=== PATIENT | female | born 1995 | race Caucasian/White ===

== ENCOUNTER 2018-06-02 22:27 | Emergency (ER) | payer BC ==
--- NOTE | 2018-06-02 23:19 | EDPHYS ---
Physician Documentation [facility] Name: Shante Kwan Age: 22 yrs Sex: Female : 1995 Arrival Date: 06/02/2018 Time: 22:32 Bed 9 Private MD: ED Physician Navarro Lyles HPI: 06/02 23:16 This 22 yrs old Female presents to ER via Ambulatory with complaints of rn Urinary Problem. 23:16 The patient presents with urinary symptoms, dysuria, frequency. Onset: The rn symptoms/episode began/occurred this morning. Modifying factors: The symptoms are alleviated by nothing, the symptoms are aggravated by urinating. Severity of symptoms: At their worst the symptoms were mild, in the emergency department the symptoms are unchanged. The patient has experienced similar episodes in the past. Reports urinary symptoms, + dysuria and frequency, lower abd pain and low back pain, similar to previous UTIs, does not feel like kidney stone. No fever/vomiting.. 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 - Social history:: Smoking status: Patient/guardian denies using tobacco, Patient/guardian denies using alcohol, street drugs. - Ebola Screening: : Patient negative for fever greater than or equal to 101.5 degrees Fahrenheit, and additional compatible Ebola Virus Disease symptoms Patient denies exposure to infectious person Patient denies travel to an Ebola-affected area in the 21 days before illness onset. - Family history:: not pertinent. - Hospitalizations: : No recent hospitalization is reported. ROS: 23:17 Constitutional: Negative for fever, chills, and weight loss, Eyes: Negative for injury, rn pain, redness, and discharge, Cardiovascular: Negative for chest pain, palpitations, and edema, Respiratory: Negative for shortness of breath, cough, wheezing, and pleuritic chest pain, Abdomen/GI: + l ower abd pain Back: + low back pain : + frequency and dysuria MS/Extremity: Negative for injury and deformity, Neuro: Negative for headache, weakness, numbness, tingling, and seizure. Exam: 23:17 Constitutional: This is a well developed, well nourished patient who is awake, alert, rn and in no acute distress. Smiling and ambulatory, hopped onto bed. Abdomen/GI: soft, non-tender Back: No spinal tenderness. No costovertebral tenderness. Full range of motion. Skin: Warm, dry with normal turgor. Normal color with no rashes, no lesions, and no evidence of cellulitis. MS/ Extremity: Pulses equal, no cyanosis. Neurovascular intact. Full, normal range of motion. Equal circumference. Neuro: Awake and alert, GCS 15, oriented to person, place, time, and situation. Cranial nerves II-XII grossly intact. Motor strength 5/5 in all extremities. Sensory grossly intact. Cerebellar exam normal. Normal gait. Vital Signs: 22:53 BP 107 / 76; Pulse 80; Resp 18; Temp 98.9(O); Pulse Ox 100% on R/A; Weight 62.14 kg fc (R); Height 5 ft. 3 in. (160.02 cm) (R); Pain 7/10; 22:53 Body Mass Index 24.27 (62.14 kg, 160.02 cm) fc MDM: 23:12 Patient medically screened. rn 23:18 Differential diagnosis: urinary tract infection. Data reviewed: vital signs, nurses rn notes, lab test result(s), and as a result, I will discharge patient. Counseling: I had a detailed discussion with the patient and/or guardian regarding: the historical points, exam findings, and any diagnostic results supporting the discharge/admit diagnosis, lab results, the need for outpatient follow up, to return to the emergency department if symptoms worsen or persist or if there are any questions or concerns that arise at home. Special discussion: I discussed with the patient/guardian in detail that at this point there is no indication for admission to the hospital. It is understood, however, that if the symptoms persist or worsen the patient needs to return immediately for re-evaluation. 06/02 23:09 Order name: Urine Dipstick--Ancillary (enter results) em1 06/02 23:09 Order name: Urine Microscopic Only em1 06/02 23:09 Order name: Urine --Ancillary (enter results) em1 06/02 23:59 Order name: Urine Microscopic Only EDMS 06/03 00:01 Order name: Urine --Ancillary EDWI 06/03 00:01 Order name: Urine Dipstick-Ancillary EDMS 06/02 23:09 Order name: Urine Dipstick-Ancillary (obtain specimen); Complete Time: 23:09 em1 06/02 23:09 Order name: Urine Test (obtain specimen); Complete Time: 23:09 em1 Administered Medications: 23:35 Drug: Macrobid 100 mg Route: PO; fc 06/03 00:04 Follow up: Response: No adverse reaction; No change in condition fc Disposition: 06/02/18 23:19 Discharged to Home. Impression: Urinary tract infection, site not specified. - Condition is Stable. - Discharge Instructions: Urinary Tract Infection, Adult. - Prescriptions for Pyridium 200 mg Oral Tablet - take 1 tablet by ORAL route every 8 hours for 3 days; 9 tablet. Macrobid 100 mg Oral Capsule - take 1 capsule by ORAL route every 12 hours for 10 days; 20 capsule. - Medication Reconciliation Form, Thank You Letter, Antibiotic Education, Prescription Opioid Use form. - Follow up: Private Physician; When: As needed; Reason: Recheck today's complaints, Re-evaluation by your physician. - Problem is new. - Symptoms are unchanged. Signatures: Dispatcher [facility] Sangita Candelario RN RN Navarro Mcgrath MD MD rn Martinez, Eric em1 Corrections: (The following items were deleted from the chart) 00:05 12 23:19 06/02/2018 23:19 Discharged to Home. Impression: Urinary tract infection, fc site not specified. Condition is Stable. Forms are Medication Reconciliation Form, Thank You Letter, Antibiotic Education, Prescription Opioid Use. Follow up: Private Physician; When: As needed; Reason: Recheck today's complaints, Re-evaluation by your physician. Problem is new. Symptoms are unchanged. rn
--- NOTE | 2018-06-02 23:19 | ER ---
Nurse's Notes [facility] Name: Shante Kwan Age: 22 yrs Sex: Female : 1995 Arrival Date: 06/02/2018 Time: 22:32 Bed 9 Private MD: Diagnosis: Urinary tract infection, site not specified Presentation: 06/02 22:51 Presenting complaint: Patient states: that today she started to have left flank pain, fc urinary frequency and burning along with blood in her urine. Transition of care: patient was not received from another setting of care. Onset of symptoms was June 02, 2018. Risk Assessment: Do you want to hurt yourself or someone else? Patient reports no desire to harm self or others. Initial Sepsis Screen: Does the patient meet any 2 criteria? No. Patient's initial sepsis screen is negative. Does the patient have a suspected source of infection? No. Patient's initial sepsis screen is negative. Care prior to arrival: None. 22:51 Method Of Arrival: Ambulatory 22:51 Acuity: MEHRAN 4 Triage Assessment: 23:14 General: Appears comfortable, Behavior is calm, cooperative, appropriate for age. Pain: fc Complains of pain in left flank Pain currently is 7 out of 10 on a pain scale. Quality of pain is described as aching, Pain began today Is continuous. EENT: No deficits noted. Neuro: Level of Consciousness is awake, alert, obeys commands, Oriented to person, place, time, situation. Cardiovascular: No deficits noted. Respiratory: No deficits noted. GI: No deficits noted. : Reports burning with urination, pain in left flank(s), urgency, urinary frequency. Derm: Skin is pink, warm \T\ dry. Musculoskeletal: Circulation, motion, and sensation intact. Capillary refill < 3 seconds, Range of motion: intact in all extremities. 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 - Social history:: Smoking status: Patient/guardian denies using tobacco, Patient/guardian denies using alcohol, street drugs. - Ebola Screening: : Patient negative for fever greater than or equal to 101.5 degrees Fahrenheit, and additional compatible Ebola Virus Disease symptoms Patient denies exposure to infectious person Patient denies travel to an Ebola-affected area in the 21 days before illness onset. - Family history:: not pertinent. - Hospitalizations: : No recent hospitalization is reported. Screenin:54 Abuse screen: Denies threats or abuse. Nutritional screening: No deficits noted. fc Tuberculosis screening: No symptoms or risk factors identified. Fall Risk None identified. Assessment: 23:15 Reassessment: No changes from previously documented assessment. Patient and/or family fc updated on plan of care and expected duration. Pain level reassessed. Patient is alert, oriented x 3, equal unlabored respirations, skin warm/dry/pink. see triage assessment. 23:15 Reassessment: Dr Lyles in to see and examine pt. Vital Signs: 22:53 BP 107 / 76; Pulse 80; Resp 18; Temp 98.9(O); Pulse Ox 100% on R/A; Weight 62.14 kg fc (R); Height 5 ft. 3 in. (160.02 cm) (R); Pain 7/10; 22:53 Body Mass Index 24.27 (62.14 kg, 160.02 cm) ED Course: 22:32 Patient arrived in ED. es 22:51 Triage completed. fc 22:53 Arm band placed on Patient placed in waiting room. 23:12 Navarro Lyles MD is Attending Physician. rn 23:15 Patient has correct armband on for positive identification. Bed in low position. Call light in reach. 23:15 No provider procedures requiring assistance completed. 06/03 00:04 Patient did not have IV access during this emergency room visit. Administered Medications: 06/02 23:35 Drug: Macrobid 100 mg Route: PO; 06/03 00:04 Follow up: Response: No adverse reaction; No change in condition Outcome: 06/02 23:19 Discharge ordered by . rn 06/03 00:04 Discharged to home ambulatory. fc Condition: good Discharge instructions given to patient, Instructed on discharge instructions, follow up and referral plans. no drinking with medication, no driving heavy equipment, medication usage, Demonstrated understanding of instructions, follow-up care, medications, Prescriptions given X 2. 00:05 Patient left the ED. fc Signatures: Elke Corbin Felicia, RN RN fc Navarro Lyles MD MD rn
[2018-06-02] MEDS ORDERED: NITROFURAN MACRO 100 MG CAP PO ONE (23:34)
[2018-06-02 23:59] LABS: Urine Bacteria <20 /HPF (<20); Urine Culture Reflex Order REFLEXED
[2018-06-03] LABS: Urine Blood 3+ (NEG); Urine Glucose NEGATIVE (NEG); Urine Protein 2+ (NEG); Urine pH 6.5 (5.0-7.0)
== END 2018-06-03 00:05 | disposition home or self-care (01) ==
LOC: ER 22:27
DX: N39.0 Urinary tract infection, site not specified (principal); Z87.442 Personal history of urinary calculi
CPT/HCPCS: 81003; 81015; 81025; 87086; 87088; 99283

== ENCOUNTER 2018-11-12 11:59 | Emergency (ER) | payer BC ==
--- OUTSIDE RECORDS SUMMARY | 2018-11-12 12:01 | XMS REPORT | Clinical Summary ---
:1995 Author Organization [facility] Address [address] [place] [id number] Care Team Providers Name Role Phone Savi Campos MICROCOMPUTER SUPPORT SPECIALIST-C Primary Care Provider Allergies Active Allergy Reactions Severity Noted Date Comments Sulfamethoxazole-Trimethoprim 08/23/2018 Sulfa (Sulfonamide Antibiotics) 08/23/2018 Medications Medication Sig Dispensed Refills Start Date End Date Status norgestimate-ethiny Take 1 tablet 28 tablet 12 08/23/2018 08/23/2019 Active l estradiol by mouth (ORTHO-CYCLEN) daily. 0.25-35 mg-mcg per tabletIndications: Abnormal uterine bleeding (AUB), Encounter for surveillance of contraceptive pills BLISOVI FE 07/22, Take 1 tablet 11 06/05/2018 08/23/2018 Discontinued 28, 1 mg-20 mcg by mouth (21)/75 mg (7) per daily. tablet nitrofurantoin, Take 1 14 capsule 0 08/27/2018 09/03/2018 macrocrystal-monohy capsule (100 drate, (MACROBID) mg total) by 100 MG capsule mouth 2 (two) times a day for 7 days. fluconazole Take 1 tablet 1 tablet 0 09/14/2018 09/14/2018 (DIFLUCAN) 150 MG (150 mg tablet total) by mouth once for 1 dose. Active Problems No known active problems Encounters Date Type Specialty Care Team Description 09/14/2018 Refill Obstetrics and Marisol Daniel MA Gynecology 08/27/2018 Refill Obstetrics and Marisol Daniel MA Gynecology 08/23/2018 Office Visit Obstetrics and David, Adenike, Abnormal uterine bleeding (AUB) (Primary Dx); Gynecology MD Encounter for surveillance of contraceptive pills after 11/11/2017 Family History Medical History Relation Name Comments Cancer Maternal Grandfather Gianluca Lung and liver Stroke Maternal Grandfather Gianluca Diabetes Maternal Grandmother Toya Stroke Maternal Grandmother Toya Cancer Paternal Grandfather Joseph Lung cancer Diabetes Paternal Grandmother Lani Relation Name Status Comments Maternal Grandfather Gianluca Maternal Grandmother Toya Paternal Grandfather Joseph Paternal Grandmother Lani Social History Tobacco Use Types Packs/Day Years Used Date Never Smoker Smokeless Tobacco: Never Used Alcohol Use Drinks/Week oz/Week Comments No Sex Assigned at Date Recorded Not on file Job Start Date Occupation Industry Not on file Not on file Not on file Travel History Travel Start Travel End No recent travel history available. Last Filed Vital Signs Vital Sign Reading Time Taken Blood Pressure 110/73 08/23/2018 10:31 AM PAYROLL AND BENEFITS SPECIALIST Pulse 88 08/23/2018 10:31 AM PAYROLL AND BENEFITS SPECIALIST Temperature - - Respiratory Rate - - Oxygen Saturation - - Inhaled Oxygen Concentration - - Weight 60.3 kg (133 lb) 08/23/2018 10:31 AM PAYROLL AND BENEFITS SPECIALIST Height 157.5 cm (5' 2") 08/23/2018 10:31 AM PAYROLL AND BENEFITS SPECIALIST Body Mass Index 24.33 08/23/2018 10:31 AM PAYROLL AND BENEFITS SPECIALIST Plan of Treatment Health Maintenance Due Date Last Done Comments CERVICAL CANCER SCREENING 2014 INFLUENZA VACCINE 01/31/2019 05/18/2018 Procedures Procedure Name Priority Date/Time Associated Diagnosis Comments POC , Routine 08/23/2018 11:03 AM Abnormal uterine Results for this URINE PAYROLL AND BENEFITS SPECIALIST bleeding (AUB) procedure are in the results section. after 11/11/2017 Results POC , urine (08/23/2018 11:03 AM PAYROLL AND BENEFITS SPECIALIST) test urine, POC Negative QC done No Specimen Urine after 11/11/2017 Insurance Payer Benefit Plan / Group Subscriber ID Type Phone Address BCBS BCBS CHOICE PPO/F[employer]ERAL EMPL PPO xxxxxxxxxxxx PPO Advance Directives Patient has advance care planning documents on file. For more information, please contact:[place] [address]
--- OUTSIDE RECORDS SUMMARY | 2018-11-12 12:01 | XMS REPORT ---
:1995 [facility] Address [address] [place] [address] Dr. Chauhan [address] [place] [id number] Care Team Providers Name Role Phone Unavailable Unavailable Unavailable Problems This patient has no known problems. Allergies, Adverse Reactions, Alerts This patient has no known allergies or adverse reactions. Medications This patient has no known medications.
[2018-11-12] MEDS ORDERED: NA CHLORIDE 0.9% 1,000 ML ONE (13:18)
[2018-11-12 13:25] LABS: Absolute Lymphocytes (CBC) 0.4 K/uL (0.7-4.9); Absolute Monocytes 0.2 K/uL (0.1-1.3); Absolute Neutrophil 7.8 K/uL (1.8-8.0); Basophils % 0.1 % (0-1.3); Eosinophils % 0.2 % (0-4.4); Lymphocytes % 5.1 % (15.3-44.8); Monocytes % 2.4 % (3.3-12.3); RBC Red Blood Cell Count 4.56 M/uL (3.86-4.86)
[2018-11-12 13:28] LABS: Urine Blood NEGATIVE (NEG); Urine Glucose NEGATIVE (NEG); Urine Protein TRACE (NEG); Urine Specific Gravity 1.025 (1.005-1.030); Urine pH 5.5 (5.0-7.0)
[2018-11-12] MEDS ORDERED: KETOROLAC 30 MG/ML INJ ONE (13:36)
[2018-11-12] MEDS ORDERED: ONDANSETRON 4 MG/2 ML VIAL ONE (13:36)
[2018-11-12 13:43] LABS: ALT/SGPT 18 U/L (12-78); AST/SGOT 18 U/L (15-37); Albumin 4.3 g/dL (3.4-5.0); Alkaline Phosphatase 65 U/L (45-117); BUN Blood Urea Nitrogen 14 mg/dL (7-18); Bicarbonate 26 mmol/L (21-32); Bilirubin Direct 0.3 mg/dL (0-0.2); Bilirubin Total 1.6 mg/dL (0.2-1.0); Glucose Level 106 mg/dL (74-106); Lipase 164 U/L (73-393); Potassium 3.9 mmol/L (3.5-5.1); Protein, Total 8.3 g/dL (6.4-8.2); Sodium Level 139 mmol/L (136-145)
--- NOTE | 2018-11-12 15:47 | RAD REPORT ---
EXAM DESCRIPTION: CTAbdomen Pelvis W Contrast - 11/12/2018 3:38 pm CLINICAL HISTORY: Abdominal pain. ABD PAIN COMPARISON: Stone Protocol dated 11/07/2018 TECHNIQUE: Biphasic CT imaging of the abdomen and pelvis was performed with 100 ml non-ionic IV cont rast. All CT scans are performed using dose optimization technique as appropriate and may include automated exposure control or mA/KV adjustment according to patient size. FINDINGS: The lung bases are clear. The liver, spleen, pancreas, adrenal glands and kidneys are within normal limits. No bowel obstruction, free air, free fluid or abscess. The appendix is normal. No evidence of signi ficant lymphadenopathy. No suspicious bony findings. IMPRESSION: No acute intra-abdominal or pelvic finding.
--- NOTE | 2018-11-12 15:55 | ER ---
Nurse's Notes [facility] Name: Shante Kwan Age: 23 yrs Sex: Female : 1995 Arrival Date: 11/12/2018 Time: 12:00 Bed 14 Private MD: Diagnosis: Nausea and vomiting;Diarrhea, unspecified;Generalized abdominal pain Presentation: 11/12 12:32 Presenting complaint: Patient states: c/o abdominal pain midline 10/10. c/o NVD, rb1 clammy, hot and cold flashes. Denies fever. Transition of care: patient was not received from another setting of care. Onset of symptoms was November 12, 2018 at 03:00. 12:32 Method Of Arrival: Ambulatory rb1 12:32 Acuity: MEHRAN 2 rb1 13:38 Risk Assessment: Do you want to hurt yourself or someone else? Patient reports no ph desire to harm self or others. Initial Sepsis Screen: Does the patient meet any 2 criteria? HR > 90 bpm. No. Patient's initial sepsis screen is negative. Does the patient have a suspected source of infection? No. Patient's initial sepsis screen is negative. Care prior to arrival: None. Triage Assessment: 12:34 General: Appears in no apparent distress. uncomfortable, slender, Behavior is calm, rb1 cooperative. Neuro: Level of Consciousness is awake, alert, obeys commands, Oriented to person, place, time, situation. Cardiovascular: Capillary refill < 3 seconds is brisk in bilateral fingers. Respiratory: Airway is patent Respiratory effort is even, unlabored, Respiratory pattern is regular, symmetrical. GI: Reports diarrhea, nausea, vomiting. Derm: Skin is pink, warm \T\ dry. Historical: - Allergies: 12:34 Bactrim; rb1 12:34 Sulfa (Sulfonamide Antibiotics); rb1 - PMHx: 12:34 Kidney stones; Migraines; rb1 - PSHx: 12:34 Tonsillectomy; BILATERAL TYMPANOSTOMY TUBES; Lithotripsy; rb1 - Immunization history:: Adult Immunizations unknown. - Social history:: Smoking status: Patient/guardian denies using tobacco. - Ebola Screening: : No symptoms or risks identified at this time. Screenin:37 Abuse screen: Denies threats or abuse. Denies injuries from another. Nutritional ph screening: No deficits noted. Tuberculosis screening: No symptoms or risk factors identified. Fall Risk None identified. Assessment: 13:25 General: Appears in no apparent distress. comfortable, slender, well groomed, Behavior ph is calm, cooperative, appropriate for age, Denies fever. Pain: Complains of pain in umbilical area and right lower quadrant. Neuro: Level of Consciousness is awake, alert, obeys commands, Oriented to person, place, time, situation. Cardiovascular: Capillary refill < 3 seconds in bilateral fingers Patient's skin is warm and dry. Respiratory: Airway is patent Respiratory effort is even, unlabored. GI: Abdomen is flat, non-distended, Bowel sounds present X 4 quads. Abd is soft X 4 quads Abdomen is tender to palpation in umbilical area Reports lower abdominal pain, bloating, diarrhea, nausea, vomiting, since yesterday. : Denies burning with urination, urinary frequency. Derm: Skin is intact, Skin is pink, warm \T\ dry. Musculoskeletal: Circulation, motion, and sensation intact. Range of motion: intact in all extremities. 14:00 Reassessment: Patient appears in no apparent distress at this time. Patient and/or ph family updated on plan of care and expected duration. Pain level reassessed. Patient is alert, oriented x 3, equal unlabored respirations, skin warm/dry/pink. Pt reports that nausea has improved and pain has decreased to 6/10, PO contrast completed, CT notified, awaiting CT scan, VSS. 15:03 Reassessment: Patient appears in no apparent distress at this time. Patient and/or ph family updated on plan of care and expected duration. Pain level reassessed. Patient is alert, oriented x 3, equal unlabored respirations, skin warm/dry/pink. Pt resting quietly, awaiting CT scan, VSS. 16:22 Reassessment: Patient appears in no apparent distress at this time. Patient and/or ph family updated on plan of care and expected duration. Pain level reassessed. Patient is alert, oriented x 3, equal unlabored respirations, skin warm/dry/pink. Pt d/c home w/ SO. Vital Signs: 12:34 BP 102 / 65; Pulse 125; Resp 16; Temp 98.5(O); Pulse Ox 98% on R/A; Weight 59.87 kg; rb1 Height 5 ft. 2 in. (157.48 cm); 13:37 BP 102 / 59; Pulse 95; Resp 16; Pulse Ox 98% on R/A; ph 15:03 BP 90 / 60; Pulse 80; Resp 16; Pulse Ox 99% on R/A; ph 16:24 BP 107 / 60; Pulse 75; Resp 18; Temp 98.1; Pulse Ox 100% on R/A; ph 12:34 Body Mass Index 24.14 (59.87 kg, 157.48 cm) rb1 ED Course: 12:00 Patient arrived in ED. as 12:33 Triage completed. rb1 12:34 Arm band placed on left wrist. rb1 12:45 Jennifer Heard FNP-C is PHCP. kb 12:45 Navarro Lyles MD is Attending Physician. kb 12:53 Adenike Abad, JOSE is Primary Nurse. ph 13:26 Initial lab(s) drawn, by me, sent to lab. Urine collected: clean catch specimen, clear. ph Inserted saline lock: 20 gauge in right antecubital area, using aseptic technique. Blood collected. 13:38 Patient has correct armband on for positive identification. Bed in low position. Call ph light in reach. Side rails up X 1. Pulse ox on. NIBP on. Door closed. Noise minimized. Warm blanket given. 15:38 CT Abd/Pelvis - W/Contrast In Process Unspecified. EDMS 16:23 No provider procedures requiring assistance completed. IV discontinued, intact, ph bleeding controlled, No redness/swelling at site. Pressure dressing applied. Administered Medications: 13:35 Drug: NS 0.9% 1000 ml Route: IV; Rate: 1000 ml; Site: right antecubital; ph 14:30 Follow up: Response: No adverse reaction; IV Status: Completed infusion ph 13:35 Drug: Zofran 4 mg Route: IVP; Site: right antecubital; ph 14:00 Follow up: Response: No adverse reaction; Nausea is decreased ph 13:36 Drug: TORadol 30 mg Route: IVP; Site: right antecubital; ph 14:00 Follow up: Response: No adverse reaction; Pain is decreased ph Outcome: 15:54 Discharge ordered by . kb 16:24 Discharged to home ambulatory, with significant other. ph 16:24 Condition: good 16:24 Discharge instructions given to patient, Instructed on discharge instructions, follow up and referral plans. medication usage, Demonstrated understanding of instructions, follow-up care, medications, Prescriptions given X 2. 16:25 Patient left the ED. ph Signatures: Dispatcher [employer] EDJennifer cMclelland, JORDAN HAJI-Whit Li Patricia, RN RN ph Betsy Boucher RN RN rb1 Corrections: (The following items were deleted from the chart) 12:37 12:32 Acuity: MEHRAN 3 rb1 rb1
--- NOTE | 2018-11-12 15:55 | EDPHYS ---
Physician Documentation [facility] Name: Shante Kwan Age: 23 yrs Sex: Female : 1995 Arrival Date: 11/12/2018 Time: 12:00 Bed 14 Private MD: ED Physician Navarro Lyles HPI: 11/12 14:37 This 23 yrs old Female presents to ER via Ambulatory with complaints of kb Nausea/Vomiting/Diarrhea. 14:37 The patient presents to the emergency department with nausea, vomiting, diarrhea, kb abdominal pain. Onset: The symptoms/episode began/occurred this morning. Possible causes: unknown. The symptoms are aggravated by nothing. The symptoms are alleviated by nothing. Associated signs and symptoms: Pertinent positives: abdominal pain, diarrhea, nausea, vomiting. Severity of symptoms: At their worst the symptoms were moderate in the emergency department the symptoms are unchanged. The patient has not experienced similar symptoms in the past. The patient has not recently seen a physician. Pt c/o abd pain that started last night to umbilical area and radiates to RLQ. States she started having n/v/d early this morning. . Historical: - Allergies: 12:34 Bactrim; rb1 12:34 Sulfa (Sulfonamide Antibiotics); rb1 - PMHx: 12:34 Kidney stones; Migraines; rb1 - PSHx: 12:34 Tonsillectomy; BILATERAL TYMPANOSTOMY TUBES; Lithotripsy; rb1 - Immunization history:: Adult Immunizations unknown. - Social history:: Smoking status: Patient/guardian denies using tobacco. - Ebola Screening: : No symptoms or risks identified at this time. ROS: 14:29 Constitutional: Negative for fever, chills, and weight loss, ENT: Negative for injury, kb pain, and discharge, Neck: Negative for injury, pain, and swelling, Cardiovascular: Negative for chest pain, palpitations, and edema, Respiratory: Negative for shortness of breath, cough, wheezing, and pleuritic chest pain, Back: Negative for injury and pain, MS/Extremity: Negative for injury and deformity, Skin: Negative for injury, rash, and discoloration, Neuro: Negative for headache, weakness, numbness, tingling, and seizure. 14:29 Abdomen/GI: Positive for abdominal pain, nausea, vomiting, and diarrhea, Negative for constipation, abdominal cramps, abdominal distension, anorexia. Exam: 14:29 Constitutional: This is a well developed, well nourished patient who is awake, alert, kb and in no acute distress. Head/Face: Normocephalic, atraumatic. Chest/axilla: Normal chest wall appearance and motion. Nontender with no deformity. No lesions are appreciated. Cardiovascular: Regular rate and rhythm with a normal S1 and S2. No gallops, murmurs, or rubs. Normal PMI, no JVD. No pulse deficits. Respiratory: Lungs have equal breath sounds bilaterally, clear to auscultation and percussion. No rales, rhonchi or wheezes noted. No increased work of breathing, no retractions or nasal flaring. Skin: Warm, dry with normal turgor. Normal color with no rashes, no lesions, and no evidence of cellulitis. MS/ Extremity: Pulses equal, no cyanosis. Neurovascular intact. Full, normal range of motion. Neuro: Awake and alert, GCS 15, oriented to person, place, time, and situation. Cranial nerves II-XII grossly intact. Motor strength 5/5 in all extremities. Sensory grossly intact. Cerebellar exam normal. Normal gait. 14:29 Abdomen/GI: Inspection: abdomen appears normal, Bowel sounds: normal, in all quadrants, Palpation: soft, in all quadrants, moderate abdominal tenderness, in the umbilical area. Vital Signs: 12:34 BP 102 / 65; Pulse 125; Resp 16; Temp 98.5(O); Pulse Ox 98% on R/A; Weight 59.87 kg; rb1 Height 5 ft. 2 in. (157.48 cm); 13:37 BP 102 / 59; Pulse 95; Resp 16; Pulse Ox 98% on R/A; ph 15:03 BP 90 / 60; Pulse 80; Resp 16; Pulse Ox 99% on R/A; ph 16:24 BP 107 / 60; Pulse 75; Resp 18; Temp 98.1; Pulse Ox 100% on R/A; ph 12:34 Body Mass Index 24.14 (59.87 kg, 157.48 cm) rb1 MDM: 12:46 Patient medically screened. kb 14:37 Data reviewed: vital signs, nurses notes. Data interpreted: Pulse oximetry: on room air kb is 98 %. Interpretation: normal. 15:54 Counseling: I had a detailed discussion with the patient and/or guardian regarding: the kb historical points, exam findings, and any diagnostic results supporting the discharge/admit diagnosis, lab results, radiology results, the need for outpatient follow up, a family practitioner, to return to the emergency department if symptoms worsen or persist or if there are any questions or concerns that arise at home. 11/12 13:02 Order name: Basic Metabolic Panel; Complete Time: 13:46 kb 11/12 13:02 Order name: CBC with Diff kb 11/12 13:02 Order name: Hepatic Function; Complete Time: 13:46 kb 11/12 13:02 Order name: Lipase; Complete Time: 13:46 kb 11/12 13:24 Order name: Urine Dipstick--Ancillary (enter results); Complete Time: 13:36 bd 11/12 13:24 Order name: Urine --Ancillary (enter results); Complete Time: 13:36 bd 11/12 13:02 Order name: IV Saline Lock; Complete Time: 13:36 kb 11/12 13:02 Order name: Labs collected and sent; Complete Time: 13:37 kb 11/12 13:02 Order name: CT Abd/Pelvis - W/Contrast; Complete Time: 15:54 kb 11/12 13:02 Order name: Urine Dipstick-Ancillary (obtain specimen); Complete Time: 13:36 kb 11/12 13:29 Order name: CBC Smear Scan EDMS 11/12 13:02 Order name: Urine Test (obtain specimen); Complete Time: 13:36 kb Administered Medications: 13:35 Drug: NS 0.9% 1000 ml Route: IV; Rate: 1000 ml; Site: right antecubital; ph 14:30 Follow up: Response: No adverse reaction; IV Status: Completed infusion ph 13:35 Drug: Zofran 4 mg Route: IVP; Site: right antecubital; ph 14:00 Follow up: Response: No adverse reaction; Nausea is decreased ph 13:36 Drug: TORadol 30 mg Route: IVP; Site: right antecubital; ph 14:00 Follow up: Response: No adverse reaction; Pain is decreased ph Disposition: 11/12/18 15:54 Discharged to Home. Impression: Nausea and vomiting, Diarrhea, unspecified, Generalized abdominal pain. - Condition is Stable. - Discharge Instructions: Food Choices to Help Relieve Diarrhea, Adult, Viral Gastroenteritis, Adult, [id number]. - Prescriptions for Bentyl 20 mg Oral Tablet - take 1 tablet by ORAL route every 6 hours As needed; 20 tablet. Zofran 4 mg Oral Tablet - take 1 tablet by ORAL route every 6 hours As needed; 20 tablet. - Medication Reconciliation Form, Thank You Letter, Antibiotic Education, Prescription Opioid Use form. - Follow up: Emergency Department; When: As needed; Reason: Worsening of condition. Follow up: Private Physician; When: 2 - 3 days; Reason: Recheck today's complaints, Continuance of care, Re-evaluation by your physician. Addendum: 11/14/2018 07:03 Co-signature as Attending Physician, Navarro Lyles MD. r n Signatures: Dispatcher [employer] EDMS Jennifer Heard, ADITHYA-C MACHINE PECAN GATHERER-Navarro Duran MD MD rn Adenike Abad RN RN Betsy James RN RN [facility] Corrections: (The following items were deleted from the chart) 11/12 16:25 15:54 11/12/2018 15:54 Discharged to Home. Impression: Nausea and vomiting; Diarrhea, ph unspecified; Generalized abdominal pain. Condition is Stable. Forms are Medication Reconciliation Form, Thank You Letter, Antibiotic Education, Prescription Opioid Use. Follow up: Emergency Department; When: As needed; Reason: Worsening of condition. Follow up: Private Physician; When: 2 - 3 days; Reason: Recheck today's complaints, Continuance of care, Re-evaluation by your physician. kb
[2018-11-12 18:46] LABS: Blood Morphology Comment NOT SEEN (NOT SEEN); Platelet Estimate ADEQ; Urine White Blood Cell Casts OK
== END 2018-11-12 16:25 | disposition home or self-care (01) ==
LOC: ER 11:59
DX: R19.7 Diarrhea, unspecified (principal); R10.84 Generalized abdominal pain; Z88.1 Allergy status to other antibiotic agents; Z88.2 Allergy status to sulfonamides; Z87.442 Personal history of urinary calculi
CPT/HCPCS: 36415; 74177; 80048; 80076; 81003; 81025; 83690; 85025; 96361; 96374; 96375; 99284; J2405; J7030; Q9967

== ENCOUNTER 2019-04-25 07:46 | Emergency (ER) | payer BC ==
[2019-04-25 09:25] LABS: Urine Blood 2+ (NEG); Urine Glucose NEGATIVE (NEG); Urine Protein TRACE (NEG); Urine Specific Gravity 1.025 (1.005-1.030)
[2019-04-25 09:44] LABS: Urine Bacteria 20-50 /HPF (<20); Urine Culture Reflex Order REFLEXED; Urine RBC <5 /HPF (NONE SEEN)
--- NOTE | 2019-04-25 09:52 | ER ---
Nurse's Notes [facility] Name: Shante Kwan Age: 23 yrs Sex: Female : 1995 Arrival Date: 04/25/2019 Time: 07:47 Bed 18 Private MD: Diagnosis: Urinary tract infection, site not specified; state Presentation: 04/25 07:57 Presenting complaint: Patient states: burning with urination, urinary frequency, back iw pain since yesterday, hx of frequent UTI and kidney stones, is approx 6 weeks . Transition of care: patient was not received from another setting of care. Onset of symptoms was April 24, 2019. Risk Assessment: Do you want to hurt yourself or someone else? Patient reports no desire to harm self or others. Initial Sepsis Screen: Does the patient meet any 2 criteria? No. Patient's initial sepsis screen is negative. Does the patient have a suspected source of infection? No. Patient's initial sepsis screen is negative. Care prior to arrival: None. 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 - Social history:: Smoking status: Patient/guardian denies using tobacco. - Ebola Screening: : Patient negative for fever greater than or equal to 101.5 degrees Fahrenheit, and additional compatible Ebola Virus Disease symptoms Patient denies exposure to infectious person Patient denies travel to an Ebola-affected area in the 21 days before illness onset No symptoms or risks identified at this time. Screenin:14 Abuse screen: Denies threats or abuse. Denies injuries from another. Nutritional hb screening: No deficits noted. Tuberculosis screening: No symptoms or risk factors identified. Fall Risk None identified. Assessment: 08:02 General: Appears in no apparent distress. Behavior is calm, cooperative. Pain: Pain hb currently is 5 out of 10 on a pain scale. Neuro: Level of Consciousness is awake, alert, obeys commands, Oriented to person, place, time, situation. Cardiovascular: Capillary refill < 3 seconds Patient's skin is warm and dry. Respiratory: Airway is patent Respiratory effort is even, unlabored, Respiratory pattern is regular, symmetrical. GI: No signs and/or symptoms were reported involving the gastrointestinal system. : Reports burning with urination, urinary frequency. EENT: No signs and/or symptoms were reported regarding the EENT system. Derm: Skin is intact, is healthy with good turgor. Musculoskeletal: No signs and/or symptoms reported regarding the musculoskeletal system. 09:00 Reassessment: Patient appears in no apparent distress at this time. Patient and/or hb family updated on plan of care and expected duration. Pain level reassessed. Patient is alert, oriented x 3, equal unlabored respirations, skin warm/dry/pink. 09:50 Reassessment: Patient appears in no apparent distress at this time. Patient and/or hb family updated on plan of care and expected duration. Pain level reassessed. Patient is alert, oriented x 3, equal unlabored respirations, skin warm/dry/pink. Vital Signs: 07:59 BP 131 / 76; Pulse 87; Resp 16 S; Temp 97.4(TE); Pulse Ox 100% on R/A; Weight 61.23 kg; iw Height 5 ft. 2 in. (157.48 cm); Pain 5/10; 09:30 BP 126 / 74; Pulse 88; Resp 15; Pulse Ox 100% on R/A; hb 07:59 Body Mass Index 24.69 (61.23 kg, 157.48 cm) iw ED Course: 07:47 Patient arrived in ED. as 07:52 Jennifer Heard FNP-C is PHCP. kb 07:52 Yg Wesley MD is Attending Physician. kb 07:58 Triage completed. iw 07:59 Arm band placed on. iw 08:02 Patient has correct armband on for positive identification. Bed in low position. Call hb light in reach. Side rails up X 1. 08:14 Corrine Fox, RN is Primary Nurse. hb 10:00 No provider procedures requiring assistance completed. Patient did not have IV access hb during this emergency room visit. Administered Medications: 09:59 Drug: Macrobid 100 mg Route: PO; hb 10:00 Follow up: Response: Medication administered at discharge. hb Outcome: 09:51 Discharge ordered by . shaun 10:00 Discharged to home ambulatory. hb 10:00 Condition: stable 10:00 Discharge instructions given to patient, Instructed on discharge instructions, follow up and referral plans. medication usage, Demonstrated understanding of instructions, follow-up care, medications, Prescriptions given X 1. 10:01 Patient left the ED. hb Signatures: Jennifer Heard, ADITHYA-C ADITHYA-Whit Li as Jayda Mccarty RN RN Corrine Graves RN RN hb
--- NOTE | 2019-04-25 09:52 | EDPHYS ---
Physician Documentation [facility] Name: Shante Kwan Age: 23 yrs Sex: Female : 1995 Arrival Date: 04/25/2019 Time: 07:47 Bed 18 Private MD: ED Physician Yg Wesley HPI: 04/25 08:09 This 23 yrs old Female presents to ER via Ambulatory with complaints of kb Urinary Problem. 08:09 The patient presents with flank pain, on the right, urinary symptoms, dysuria, kb frequency. Onset: The symptoms/episode began/occurred yesterday. Modifying factors: The symptoms are alleviated by nothing, the symptoms are aggravated by urinating. Associated signs and symptoms: Pertinent positives: dysuria, urinary frequency. Severity of symptoms: At their worst the symptoms were moderate, in the emergency department the symptoms are unchanged. The patient has experienced similar episodes in the past. The patient has not recently seen a physician. 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 - Social history:: Smoking status: Patient/guardian denies using tobacco. - Ebola Screening: : Patient negative for fever greater than or equal to 101.5 degrees Fahrenheit, and additional compatible Ebola Virus Disease symptoms Patient denies exposure to infectious person Patient denies travel to an Ebola-affected area in the 21 days before illness onset No symptoms or risks identified at this time. ROS: 08:08 Constitutional: Negative for fever, chills, and weight loss, Neck: Negative for injury, kb pain, and swelling, Cardiovascular: Negative for chest pain, palpitations, and edema, Respiratory: Negative for shortness of breath, cough, wheezing, and pleuritic chest pain, Abdomen/GI: Negative for abdominal pain, nausea, vomiting, diarrhea, and constipation, MS/Extremity: Negative for injury and deformity, Skin: Negative for injury, rash, and discoloration, Neuro: Negative for headache, weakness, numbness, tingling, and seizure. 08:08 : Positive for urinary frequency, burning with urination. Exam: 08:08 Constitutional: This is a well developed, well nourished patient who is awake, alert, kb and in no acute distress. Head/Face: Normocephalic, atraumatic. ENT: Nares patent. No nasal discharge, no septal abnormalities noted. Tympanic membranes are normal and external auditory canals are clear. Oropharynx with no redness, swelling, or masses, exudates, or evidence of obstruction, uvula midline. Mucous membranes moist. Neck: Trachea midline, no thyromegaly or masses palpated, and no cervical lymphadenopathy. Supple, full range of motion without nuchal rigidity, or vertebral point tenderness. No Meningismus. Chest/axilla: Normal chest wall appearance and motion. Nontender with no deformity. No lesions are appreciated. Cardiovascular: Regular rate and rhythm with a normal S1 and S2. No gallops, murmurs, or rubs. Normal PMI, no JVD. No pulse deficits. Respiratory: Lungs have equal breath sounds bilaterally, clear to auscultation and percussion. No rales, rhonchi or wheezes noted. No increased work of breathing, no retractions or nasal flaring. Abdomen/GI: Soft, non-tender, with normal bowel sounds. No distension or tympany. No guarding or rebound. No evidence of tenderness throughout. Back: No spinal tenderness. No costovertebral tenderness. Full range of motion. Skin: Warm, dry with normal turgor. Normal color with no rashes, no lesions, and no evidence of cellulitis. MS/ Extremity: Pulses equal, no cyanosis. Neurovascular intact. Full, normal range of motion. Neuro: Awake and alert, GCS 15, oriented to person, place, time, and situation. Cranial nerves II-XII grossly intact. Motor strength 5/5 in all extremities. Sensory grossly intact. Cerebellar exam normal. Normal gait. Vital Signs: 07:59 BP 131 / 76; Pulse 87; Resp 16 S; Temp 97.4(TE); Pulse Ox 100% on R/A; Weight 61.23 kg; iw Height 5 ft. 2 in. (157.48 cm); Pain 5/10; 09:30 BP 126 / 74; Pulse 88; Resp 15; Pulse Ox 100% on R/A; hb 07:59 Body Mass Index 24.69 (61.23 kg, 157.48 cm) iw MDM: 07:52 Patient medically screened. kb 08:07 Data reviewed: vital signs, nurses notes. Data interpreted: Pulse oximetry: on room air kb is 100 %. Interpretation: normal. 09:37 ED course: Awaiting Urine Micro results. . kb 09:50 Counseling: I had a detailed discussion with the patient and/or guardian regarding: the kb historical points, exam findings, and any diagnostic results supporting the discharge/admit diagnosis, lab results, the need for outpatient follow up, a family practitioner, to return to the emergency department if symptoms worsen or persist or if there are any questions or concerns that arise at home. 04/25 07:54 Order name: Urine Microscopic Only; Complete Time: 09:50 kb 04/25 08:02 Order name: Urine Dipstick--Ancillary (enter results); Complete Time: 09:27 eb 04/25 07:54 Order name: Urine Test (obtain specimen); Complete Time: 08:14 kb 04/25 08:02 Order name: Urine --Ancillary (enter results); Complete Time: 09:27 eb 04/25 09:47 Order name: Urine Culture EDMN 04/25 07:54 Order name: Urine Dipstick-Ancillary (obtain specimen); Complete Time: 08:14 kb Administered Medications: 09:59 Drug: Macrobid 100 mg Route: PO; hb 10:00 Follow up: Response: Medication administered at discharge. hb Disposition: 12:45 Co-signature as Attending Physician, Yg Wesley MD I agree with the assessment and kdr plan of care. Disposition: 04/25/19 09:51 Discharged to Home. Impression: Urinary tract infection, site not specified, state. - Condition is Stable. - Discharge Instructions: Urinary Tract Infection, Adult, [id number], and Urinary Tract Infection. - Prescriptions for Macrobid 100 mg Oral Capsule - take 1 capsule by ORAL route every 12 hours for 10 days; 20 capsule. - Medication Reconciliation Form, Thank You Letter, Antibiotic Education, Prescription Opioid Use, Work release form form. - Follow up: Emergency Department; When: As needed; Reason: Worsening of condition. Follow up: Private Physician; When: 2 - 3 days; Reason: Recheck today's complaints, Continuance of care, Re-evaluation by your physician. Signatures: Dispatcher [employer] EDMS Jennifer Heard, WEEDER-C WEEDER-Ckb Yg Wesley MD MD [facility] Jayda Mccarty, JOSE RN iw Corrine Fox, JOSE RN hb Corrections: (The following items were deleted from the chart) 09:54 09:51 04/25/2019 09:51 Discharged to Home. Impression: Urinary tract infection, site kb not specified. Condition is Stable. Forms are Medication Reconciliation Form, Thank You Letter, Antibiotic Education, Prescription Opioid Use. Follow up: Emergency Department; When: As needed; Reason: Worsening of condition. Follow up: Private Physician; When: 2 - 3 days; Reason: Recheck today's complaints, Continuance of care, Re-evaluation by your physician. kb 10:01 09:54 04/25/2019 09:51 Discharged to Home. Impression: Urinary tract infection, site hb not specified; state. Condition is Stable. Discharge Instructions: Urinary Tract Infection, Adult, [id number], and Urinary Tract Infection. Prescriptions for Macrobid 100 mg Oral Capsule - take 1 capsule by ORAL route every 12 hours for 10 days; 20 capsule. and Forms are Medication Reconciliation Form, Thank You Letter, Antibiotic Education, Prescription Opioid Use. Follow up: Emergency Department; When: As needed; Reason: Worsening of condition. Follow up: Private Physician; When: 2 - 3 days; Reason: Recheck today's complaints, Continuance of care, Re-evaluation by your physician. kb
[2019-04-25] MEDS ORDERED: NITROFURAN MACRO 100 MG CAP PO ONE (09:56)
[2019-04-25 10:10] VITALS: TEMP 97.4; O2SAT 100
[2019-04-25 10:11] VITALS: BP 126/74
== END 2019-04-25 10:01 | disposition home or self-care (01) ==
LOC: ER 07:46
DX: O23.41 Unspecified infection of urinary tract in pregnancy, first trimester (principal); Z3A.01 Less than 8 weeks gestation of pregnancy; Z88.1 Allergy status to other antibiotic agents; Z88.2 Allergy status to sulfonamides
CPT/HCPCS: 81003; 81015; 81025; 87086; 87088; 99283